=== PATIENT | female | born 1995 | race Caucasian/White ===

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

== ENCOUNTER 2017-04-17 17:59 | Emergency (ER) | payer MEDICAID, OTHER ==
[2017-04-17] MEDS ORDERED: NAPROXEN 500 MG TAB PO (19:30)
[2017-04-17] MEDS: KETOROLAC TROMETHAMINE 60 MG/2 ML (IM) VIAL IM (19:45)
== END 2017-04-17 20:14 | disposition home or self-care (01) ==
LOC: NEPD 17:59
DX: S20.219A Contusion of unspecified front wall of thorax, initial encounter (principal); W10.9XXA Fall (on) (from) unspecified stairs and steps, initial encounter; Z72.0 Tobacco use
CPT/HCPCS: 71046; 84703; 96372; 99284-25

== ENCOUNTER 2017-07-08 04:33 | Emergency (ER) | payer MEDICAID ==
[~2017-07-08] VITALS: Ht 165.1 cm; Wt 115.0 kg
[~2017-07-08 04:33] MED LIST: NAPR500 PO
[2017-07-08 04:44] VITALS: BP 159/89; PULSE 89; RESP 18; TEMP 99.3; O2SAT 97
--- NOTE | 2017-07-08 05:56 | PD ---
HPI Chief Complaint: Pain: Acute or Chronic Time Seen by Provider: 05:50 Travel History International Travel<30 days: No Contact w/Intl Traveler<30days: No Traveled to known affect area: No History of Present Illness HPI 22-year-old female with no significant medical history presents emergency department for evaluation of persistent left rib pain. Patient states she was seen and evaluated in March of this year. She was diagnosed with a chest wall contusion. She states the pain has persisted. It is painful to take a deep breath. Denies any fever or chills. Denies any cough or chest congestion. No hemoptysis. No new injury. It is a constant ache, exacerbated with inspiration. No other symptoms to report. PFSH Past Medical History Medical History: Denies Significant Hx Diminished Hearing: No Immunizations Current: Yes Tetanus Vaccination: < 5 Years Influenza Vaccination: No ?: Not LMP: 07/08/2017 Past Surgical History Surgical History: No Previous Surgery Social History Alcohol Use: No Tobacco Use: Yes Substance Use: No Allergies-Medications (Allergen,Severity, Reaction): Coded Allergies: No Known Allergies (Unverified Adverse Reaction, Unknown, 07/08/17) Reported Meds & Prescriptions Reported Meds & Active Scripts Active Naprosyn (Naproxen) 500 Mg Tab 500 Mg PO BID 7 Days Review of Systems Except as stated in HPI: all other systems reviewed are Neg Physical Exam Narrative GENERAL: Well-nourished, well-developed female patient in no acute distress SKIN: Focused skin assessment warm/dry. HEAD: Normocephalic. EYES: No scleral icterus. No injection or drainage. NECK: Supple, trachea midline. No JVD or lymphadenopathy. CARDIOVASCULAR: Regular rate and rhythm without murmurs, gallops, or rubs. RESPIRATORY: Breath sounds equal bilaterally. No accessory muscle use. Tenderness elicited palpation of the left posterior rib cage. No crepitus. Even respirations. GASTROINTESTINAL: Abdomen soft, non-tender, nondistended. MUSCULOSKELETAL: No cyanosis, or edema. BACK: Nontender without obvious deformity. No CVA tenderness. Data Data Last Documented VS Vital Signs Date Time Temp Pulse Resp B/P (MAP) Pulse Ox O2 Delivery O2 Flow Rate FiO2 07/08/17 04:44 99.3 89 18 159/89 (112) 97 Orders Orders Chest, Single Ap (07/08/17 ) Dexamethasone Inj (Decadron Inj) (07/08/17 06:00) Ed Discharge Order (07/08/17 06:27) [facility] Medical Decision Making Medical Screen Exam Complete: Yes Emergency Medical Condition: Yes Medical Record Reviewed: Yes Differential Diagnosis Costochondritis versus chest wall contusion versus fracture versus pneumonia Narrative Course 22-year-old female presents emergency department for evaluation of left rib pain persisting since March. Patient appears without distress. Vital signs are stable. She does have tenderness to palpation of the left posterior rib cage. X-ray imaging confirms no acute bony abnormality. Patient is given a shot of Decadron. She is encouraged to follow-up with primary care provider and return immediately with any acute worsening symptoms. Diagnosis Primary Impression: Rib pain on left side Referrals: Primary Care Physician Patient Instructions: Costochondritis (ED), General Instructions Additional Instructions: Follow-up with a primary care provider Tylenol or ibuprofen as directed on the package as needed for fever and/or pain Make sure you are taking deep breaths to reduce risk of pneumonia Return immediately with any acute worsening symptoms Med/Other Pt SpecificInfo: No Change to Meds Disposition: 01 DISCHARGE HOME Condition: Stable Brandi Panchal Jul 08, 2017 05:56
[2017-07-08] MEDS ORDERED: DEXAMETHASONE SOD PHOS 20 MG/5 ML VIAL IM ONE (06:00)
--- NOTE | 2017-07-08 06:25 | RADRPT ---
EXAM DATE/TIME: 07/08/2017 05:56 [facility] COMPARISON: No previous studies available for comparison. INDICATIONS : Continuing bilateral, left greater then right, rib pain from fall in March of 2017. MEDICAL HISTORY : None. SURGICAL HISTORY : None. ENCOUNTER: Subsequent ACUITY: 3 months PAIN SCORE: 8/10 LOCATION: Bilateral ribs FINDINGS: A single view of the chest demonstrates the lungs to be symmetrically aerated without evidence of mas s, infiltrate or effusion. The cardiomediastinal contours are unremarkable. Osseous structures are intact. CONCLUSION: 1. No acute cardiopulmonary disease. Derrick Vela MD on July 08, 2017 at 6:24 Board Certified Radiologist. This report was verified electronically.
== END 2017-07-08 06:43 | disposition home or self-care (01) ==
LOC: NEPD 04:33
DX: R07.81 Pleurodynia (principal); Z72.0 Tobacco use
CPT/HCPCS: 71045; 96372; 99283; J1100